=== PATIENT | male | born 1940 | race Caucasian/White ===

== ENCOUNTER 2022-06-05 10:28 | Day surgery (SDC) | payer MEDICARE, BC ==
[~2022-06-05 10:28] MED LIST: Brimonidine 0.2% Ophth Soln 5 ML Bottle EYELF SCH; Cefuroxime 10 MG/ML SYRINGE EYELF SCH; Lidocaine 1% PF 2 ML SDV INJECT SCH; Phenylephrine 2.5% Ophth Soln 2 ML Bot EYELF SCH; Pilocarpine 4% Ophth Soln 15 ML Bot EYELF SCH; Polymyxin B/Trimethoprim 10 ML Bottle EYELF SCH; Tetracaine HCl/PF 0.5% 4 ML Bottle EYEBOTH SCH; Tropicamide 1% Ophth Soln 15 ML Bottle EYELF SCH
[2022-06-05] MEDS: Polymyxin B/Trimethoprim 10 ML Bottle EYELF SCH ×4 (11:19→13:04)
[2022-06-05] MEDS: Brimonidine 0.2% Ophth Soln 5 ML Bottle EYELF SCH ×4 (11:25→13:04)
[2022-06-05] MEDS: Phenylephrine 2.5% Ophth Soln 2 ML Bot EYELF SCH ×8 (11:30→12:42)
[2022-06-05] MEDS: Tropicamide 1% Ophth Soln 15 ML Bottle EYELF SCH ×4 (11:35→12:20)
[2022-06-05] MEDS: Cefuroxime 10 MG/ML SYRINGE EYELF SCH ×2 (12:21→13:02)
[2022-06-05] MEDS: Tetracaine HCl/PF 0.5% 4 ML Bottle EYEBOTH SCH ×5 (12:21→12:49)
[2022-06-05] MEDS: Lidocaine 1% PF 2 ML SDV INJECT SCH ×2 (12:21→12:50)
[2022-06-05] MEDS: Pilocarpine 4% Ophth Soln 15 ML Bot EYELF SCH ×2 (12:22→13:04)
== END 2022-06-05 13:11 ==
LOC: JD.SDS 10:28
PROVIDERS: ATTEND Ophthalmology
DX: H25.813 Combined forms of age-related cataract, bilateral (principal); M19.90 Unspecified osteoarthritis, unspecified site; Z98.890 Other specified postprocedural states; Z79.899 Other long term (current) drug therapy
CPT/HCPCS: A9270-GY; C1780; J0697; J3490

== ENCOUNTER 2022-08-01 08:30 | Day surgery (SDC) | payer MEDICARE, BC ==
[2022-08-01] MEDS: Polymyxin B/Trimethoprim 10 ML Bottle EYERT SCH ×3 (08:05→10:45)
[2022-08-01] MEDS: Brimonidine 0.2% Ophth Soln 5 ML Bottle EYERT SCH ×3 (08:10→10:45)
[2022-08-01] MEDS: Phenylephrine 2.5% Ophth Soln 2 ML Bot EYERT SCH ×5 (08:15→10:19)
[2022-08-01] MEDS: Tropicamide 1% Ophth Soln 15 ML Bottle EYERT SCH ×4 (08:20→09:00)
[~2022-08-01 08:30] MED LIST changes: -Brimonidine 0.2% Ophth Soln 5 ML Bottle EYELF SCH; +Brimonidine 0.2% Ophth Soln 5 ML Bottle EYERT SCH; -Cefuroxime 10 MG/ML SYRINGE EYELF SCH; +Cefuroxime 10 MG/ML SYRINGE EYERT SCH; -Phenylephrine 2.5% Ophth Soln 2 ML Bot EYELF SCH; +Phenylephrine 2.5% Ophth Soln 2 ML Bot EYERT SCH; -Pilocarpine 4% Ophth Soln 15 ML Bot EYELF SCH; +Pilocarpine 4% Ophth Soln 15 ML Bot EYERT SCH; -Polymyxin B/Trimethoprim 10 ML Bottle EYELF SCH; +Polymyxin B/Trimethoprim 10 ML Bottle EYERT SCH; -Tropicamide 1% Ophth Soln 15 ML Bottle EYELF SCH; +Tropicamide 1% Ophth Soln 15 ML Bottle EYERT SCH
[2022-08-01] MEDS: Tetracaine HCl/PF 0.5% 4 ML Bottle EYEBOTH SCH ×2 (09:41→10:29)
== END 2022-08-01 11:00 | disposition home or self-care (01) ==
LOC: JD.SDS 08:30
PROVIDERS: ATTEND Ophthalmology
DX: H25.811 Combined forms of age-related cataract, right eye (principal); M19.90 Unspecified osteoarthritis, unspecified site; E78.00 Pure hypercholesterolemia, unspecified; Z79.899 Other long term (current) drug therapy
CPT/HCPCS: 66984; A9270; J0697; C1780; J3490